=== PATIENT | female | born 1950 | race Asian ===

== ENCOUNTER 2021-04-12 06:22 | Emergency (ER) | payer MEDICARE ==
[~2021-04-12] VITALS: Ht 162.6 cm; Wt 55.0 kg
[2021-04-12] MEDS ORDERED: SODIUM CHLORIDE 0.9% 250 ML IV ONE (06:45)
[2021-04-12] MEDS ORDERED: MECLIZINE 25MG TABLET PO ONE (06:45)
[2021-04-12] MEDS ORDERED: ONDANSETRON HCL 4MG/2ML INJ IV ONE (06:45)
[2021-04-12] MEDS ORDERED: LORAZEPAM 2MG/ML CPJ IV ONE (06:45)
[2021-04-12 07:10] LABS: BASOPHILS % 0.4 % (0.0-2.0); EOSINOPHILS % 1.5 % (0.0-5.0); HEMATOCRIT. 43.4 % (36.0-48.0); HEMOGLOBIN. 14.7 g/dL (12.0-16.0); LYMPHOCYTES % 42.4 % (20.0-50.0); MEAN CORPUSCULAR HEMOGLOBIN 30.5 pg (28.0-32.0); MEAN CORPUSCULAR VOLUME 90.3 fL (81.0-99.0); MEAN PLATELET VOLUME 8.9 fl (7.4-10.4); MONOCYTES % 4.7 % (2.0-8.0); PLATELET 195 x1000/uL (130-400)
[2021-04-12 07:22] LABS: CHLORIDE 110 mEq/L (98-107)
[2021-04-12 07:26] LABS: ETHANOL BLOOD < 10 mg/dL
[2021-04-12] MEDS ORDERED: IOHEXOL-350 100 ML BOTTLE ONE (08:18)
[2021-04-12] MEDS ORDERED: MECL-159 MT (10:23)
[2021-04-12] MEDS ORDERED: ONDA4TAB5 MT (10:25)
[2021-04-12] MEDS ORDERED: PANT40SU MT (10:25)
[2021-04-12] MEDS ORDERED: MAG355OR21 MT (10:25)
[2021-04-12 11:22] VITALS: BP 138/74
== END 2021-04-12 11:26 | disposition home or self-care (01) ==
LOC: ER 06:22
DX: R42 Dizziness and giddiness (principal); R03.0 Elevated blood-pressure reading, without diagnosis of hypertension; R11.2 Nausea with vomiting, unspecified; K21.9 Gastro-esophageal reflux disease without esophagitis; E78.00 Pure hypercholesterolemia, unspecified
CPT/HCPCS: 36415; 70450; 70496; 70498; 71045; 80053; 80320; 83880; 84484; 85025; 96361; 96374; 96375; 99285; J2060; J2405; J7050; Q9967; J8597; G0480